=== PATIENT | male | born 1970 | race Caucasian/White ===

== ENCOUNTER 2023-11-30 08:57 | Inpatient (IN) | payer OTHER ==
[2023-11-30 09:39] LABS: Hematocrit 30.5 % (38.8-50.0); Hemoglobin 9.7 g/dL (13.5-17.5); Mean Corpuscular HGB CONC 31.8 g/dL (32.0-36.0); Mean Corpuscular Hemoglobin 26.7 pg (27.0-33.0); Mean Platelet Volume 8.3 fl (7.4-10.4); Platelet Count 398 10x3/uL (150-450); RBC Distribution Width 14.2 % (11.5-14.5); Red Blood Cell (RBC) Count 3.63 10x6/uL (4.32-5.72); White Blood Cell (WBC) Count 8.6 10x3/uL (3.5-10.5)
[2023-11-30 09:57] LABS: Anion Gap 12 mmol/L (10-20); BUN (Urea Nitrogen) 16 mg/dL (8.4-25.7); Calc. Creatinine Clearance 176 mL/min (70-130); Carbon Dioxide 29 mmol/L (22-29); Chloride 96 mmol/L (98-107); Estimated GFR 103; Glucose 100 mg/dL (70-105); Potassium 4.1 mmol/L (3.5-5.1); Sodium 133 mmol/L (136-145)
[2023-11-30] MEDS ORDERED: Bupivacaine PF 0.5% 30 ML VIAL ONE (11:58)
[2023-11-30] MEDS ORDERED: Esmolol 100 MG/10 ML VIAL ONE (12:04)
[2023-11-30] MEDS ORDERED: Dexamethasone 4 mg/ml Vial ONE (12:04)
[2023-11-30] MEDS ORDERED: Ondansetron PF 4 MG/2 ML Vial ONE (12:04)
[2023-11-30] MEDS ORDERED: Midazolam HCl 2 mg/2 ml Vial ONE (12:05)
[2023-11-30] MEDS ORDERED: Lidocaine 1% PF 5 ML VIAL ONE (12:05)
[2023-11-30] MEDS ORDERED: Midazolam HCl 5 mg/5 ml Vial ONE (12:05)
[2023-11-30] MEDS ORDERED: PROPOFOL 20 ML ONE (12:05)
[2023-11-30] MEDS ORDERED: fentaNYL 50 mcg/mL 1 mL Vial ONE (12:05)
[2023-11-30] MEDS ORDERED: CEFAZOLIN 2 GM VIAL ONE (12:12)
[2023-11-30] MEDS ORDERED: Ketorolac Tromethamine 30 MG (1 mL) VIAL ONE (12:38)
[2023-11-30] MEDS ORDERED: EPINEPHrine 1 MG/ML AMP ONE (12:44)
[2023-11-30] MEDS ORDERED: HYDROmorphone 0.5 MG/0.5 ML SYRINGE ONE ×2 (13:18→13:39)
[2023-11-30] MEDS ORDERED: Ondansetron PF 4 MG/2 ML Vial IVP PRN (13:35)
[2023-11-30] MEDS ORDERED: Morphine 2 MG/ML VIAL SLOW IVP PRN (13:35)
[2023-11-30] MEDS ORDERED: Communication Order-Pharmacy FS SCH (13:45)
[2023-11-30 17:00] VITALS: BMI 35.9
[2023-11-30] MEDS: Ketorolac Tromethamine 30 MG (1 mL) VIAL IVP SCH (18:33)
[2023-11-30] MEDS: FLU VACC QS2023-24(6MOS UP)/PF 60 MCG/0.5 ML SYRINGE IM ONE (21:56)
[2023-11-30] MEDS: Aspirin 81 mg Enteric Coated Tablet PO SCH (21:57)
[2023-11-30] MEDS: CEFAZOLIN 2 GM in Sodium Chloride 0.9% 100 ML IVPB SCH (21:57)
[2023-11-30] MEDS: HYDROcodone/Acetaminophen 10/325 mg Tablet PO PRN (22:06)
[2023-12-01] MEDS: Morphine 4 MG/ML VIAL SLOW IVP PRN (04:25)
[2023-12-01] MEDS: CEFAZOLIN 2 GM VIAL ONE (13:35)
[2023-12-02 05:40] LABS: #Monocytes 0.5 10x3/uL (0.0-1.1); %Basophils 0.2 % (0.0-2.0); %Eosinophils 0.4 % (0.0-6.0); %Lymphocytes 19.2 % (18.0-47.0); %Monocytes 5.7 % (0.0-10.0); %Neutrophils 73.3 % (40.0-75.0); Hematocrit 25.1 % (38.8-50.0); Hemoglobin 7.9 g/dL (13.5-17.5); Mean Corpuscular HGB CONC 31.5 g/dL (32.0-36.0); Mean Corpuscular Hemoglobin 27.1 pg (27.0-33.0); Mean Corpuscular Volume 86.3 fl (81.2-95.1); Mean Platelet Volume 8.6 fl (7.4-10.4); Platelet Count 308 10x3/uL (150-450); RBC Distribution Width 14.4 % (11.5-14.5); Red Blood Cell (RBC) Count 2.91 10x6/uL (4.32-5.72); White Blood Cell (WBC) Count 8.2 10x3/uL (3.5-10.5)
[2023-12-02 05:46] LABS: ALT (SGPT) Less than 7 U/L (8-55); AST (SGOT) 13 U/L (5-34); Albumin 2.7 g/dL (3.5-5.0); Alkaline Phosphatase 62 U/L (40-110); Anion Gap 11 mmol/L (10-20); BUN (Urea Nitrogen) 23 mg/dL (8.4-25.7); Bilirubin, Total 0.2 mg/dL (0.2-1.2); Calc. Creatinine Clearance 183 mL/min (70-130); Calcium 7.9 mg/dL (7.8-10.44); Carbon Dioxide 28 mmol/L (22-29); Chloride 100 mmol/L (98-107); Estimated GFR 105; Globulin 4.5 g/dL (2.4-3.5); Glucose 112 mg/dL (70-105); Potassium 4.3 mmol/L (3.5-5.1); Protein, Total 7.2 g/dL (6.0-8.3); Sodium 135 mmol/L (136-145)
[2023-12-02] MEDS ORDERED: Milk Of Magnesia 30 ML UDCUP PO PRN (19:31)
[2023-12-02] MEDS: Bisacodyl 5 MG TAB PO PRN (20:12)
[2023-12-05] MEDS: Polyethylene Glycol 3350 17 GM Packet PO SCH (09:02)
[2023-12-05] MEDS: HYDROcodone/Acetaminophen 10/325 mg Tablet PO PRN (20:30)
[2023-12-06] MEDS ORDERED: Lidocaine 1% PF 5 ML VIAL ONE (08:29)
[2023-12-06] MEDS ORDERED: Sodium Bicarbonate 2.5 MEQ/5 ML SDV ONE (08:29)
[2023-12-10 04:39] VITALS: BP 98/57; TEMP 97.7
[2023-12-10] MEDS ORDERED: QUEtiapine 100 MG TAB PO SCH (09:00)
== END 2023-12-10 08:00 | disposition home health service (06) | DRG 487 ==
LOC: CSHSDC 08:57 → CSHTELE 16:31
PROVIDERS: ADMIT Orthopaedic Surgery; ATTEND Orthopaedic Surgery
PROC: 0SBC4ZZ Excision of Right Knee Joint, Percutaneous Endoscopic Approach (ICD-10-PCS; 2023-11-30)
PROC: 3E033XZ Introduction of Vasopressor into Peripheral Vein, Percutaneous Approach (ICD-10-PCS; 2023-11-30)
PROC: 02HV33Z Insertion of Infusion Device into Superior Vena Cava, Percutaneous Approach (ICD-10-PCS; principal; 2023-12-06)
DX: M00.061 Staphylococcal arthritis, right knee (principal); B95.61 Methicillin susceptible Staphylococcus aureus infection as the cause of diseases classified elsewhere; F41.9 Anxiety disorder, unspecified; F17.210 Nicotine dependence, cigarettes, uncomplicated; Z98.890 Other specified postprocedural states; Z79.899 Other long term (current) drug therapy; Z88.0 Allergy status to penicillin
CPT/HCPCS: 36415; 36569; 80048; 80053; 85025; 85027; 86140; 87040; 87070; 87077; 87186; 87205; 93005; 93010; 94760; C1751; J0171; J0665; J1100; J1170; J1885; J2250; J2270; J2405; J2704; J3010; J3490